=== PATIENT | female | born 1945 | race Caucasian/White ===

== ENCOUNTER → 2016-08-22 | Outpatient (CLI) | payer MEDICARE, OTHER | LOC: RAD 08:54 | PROVIDERS: ATTEND Internal Medicine Cardiovascular Disease | DX: I10 Essential (primary) hypertension (principal) | CPT/HCPCS: 93975 ==

== ENCOUNTER → 2016-09-07 | Outpatient (CLI) | payer MEDICARE, OTHER ==
[2016-09-07 10:21] LABS: ANION GAP 13 (5-19); BLOOD UREA NITROGEN 21 mg/dL (7-20); CALCIUM 10.1 mg/dL (8.4-10.2); CARBON DIOXIDE 27 mmol/L (22-30); CHLORIDE 103 mmol/L (98-107); CREATININE RESULT 0.84 mg/dL (0.52-1.25); GLUCOSE 141 mg/dL (75-110); POTASSIUM 4.7 mmol/L (3.6-5.0); SODIUM 142.6 mmol/L (137-145)
== END ==
LOC: OD 08:58
PROVIDERS: ATTEND Internal Medicine Cardiovascular Disease
DX: Z79.899 Other long term (current) drug therapy (principal)
CPT/HCPCS: 36415; 80048; 83735

== ENCOUNTER 2016-11-30 10:57 | Emergency (ER) | payer MEDICARE, OTHER ==
--- NOTE | 2016-11-30 11:50 | ER Document Report ---
ED Medical Screen (RME) - General Chief Complaint: Fall Injury Stated Complaint: FALL LEGPAIN Mode of Arrival: Ambulatory Information source: Patient, Relative, [facility] Records Notes: This 71-year-old female patient comes in with extreme complaining of right hip pain. This is been going on for several months. This morning she had severe sharp pain in the leg gave out causing her to fall. She is complaining of pain to the hip. She is able walk on it but it is painful. TRAVEL OUTSIDE OF THE [place] IN LAST 30 DAYS: No - Related Data Allergies/Adverse Reactions: acetaminophen [From Percocet] Allergy (Verified 11/30/16 11:00) bacitracin [From Neosporin ([id number])] Allergy (Verified 11/30/16 11:00) demeclocycline [From Declomycin] Allergy (Verified 11/30/16 11:00) latex Allergy (Verified 11/30/16 11:00) metronidazole [From Flagyl] Allergy (Verified 11/30/16 11:00) neomycin [From Neosporin (uzx-pmf-leqgm)] Allergy (Verified 11/30/16 11:00) nizatidine [From Axid] Allergy (Verified 11/30/16 11:00) oxycodone [From Percocet] Allergy (Verified 11/30/16 11:00) polymyxin B [From Neosporin (pas-elp-dymip)] Allergy (Verified 11/30/16 11:00) prednisone Allergy (Verified 11/30/16 11:00) sulfamethoxazole [From Septra] Allergy (Verified 11/30/16 11:00) trimethoprim [From Septra] Allergy (Verified 11/30/16 11:00) Past Medical History - General Information source: Patient, Relative, [facility] Records - Social History Cigarette use (# per day): No - former smoker Chew tobacco use (# tins/day): No Frequency of alcohol use: None Occupation: retired Lives with: Spouse/Significant other - Past Medical History Cardiac Medical History: Reports: Hx Coronary Artery Disease, Hx Hypertension Pulmonary Medical History: Reports: None EENT Medical History: Reports: None Neurological Medical History: Reports: Other - Diabetic peripheral neuropathy Endocrine Medical History: Reports: Hx Diabetes Mellitus Type 2 - On insulin Renal/ Medical History: Reports: None GI Medical History: Reports: Hx Gastroesophageal Reflux Disease Musculoskeltal Medical History: Reports Hx Arthritis, Reports Hx Restless Leg Syndrome Psychiatric Medical History: Reports: Hx Depression Past Surgical History: Reports: Hx Cholecystectomy, Hx Nose Surgery, Hx Orthopedic Surgery - Carpal tunnel, left shoulder, both feet, right hand exploration, Other - Bilateral eye surgery, right ear surgery Review of Systems - Review of Systems Constitutional: No symptoms reported EENT: No symptoms reported Cardiovascular: No symptoms reported Respiratory: No symptoms reported Gastrointestinal: No symptoms reported Genitourinary: No symptoms reported Female Genitourinary: Post menopausal Musculoskeletal: See HPI, Joint pain - Right hip pain Skin: No symptoms reported Hematologic/Lymphatic: No symptoms reported Neurological/Psychological: No symptoms reported Physical Exam - Vital signs Vitals: Temp Pulse Resp BP Pulse Ox 98.4 F 65 18 134/67 H 98 11/30/16 11:00 11/30/16 11:00 11/30/16 11:00 11/30/16 11:00 11/30/16 11:00 Interpretation: Normal - General General appearance: Appears well, Alert In distress: None - HEENT Head: Normocephalic, Atraumatic Eyes: Normal Pupils: PERRL - Respiratory Respiratory status: No respiratory distress - Cardiovascular Rhythm: Regular - Abdominal Inspection: Obese Tenderness: Nontender - Back Back: Normal - Extremities General upper extremity: Other - 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 Doctor's Discharge - Discharge Clinical Impression: Trochanteric bursitis, right hip Condition: Stable Disposition: HOME, SELF-CARE Additional Instructions: Bursitis: You have been diagnosed as having bursitis. Bursitis is an inflammation of a fluid pouch (bursa) found near joints. This is usually due to repeated minor irritation, or pressure directly on the bursa. On occasion, the bursitis can be due to infection (your doctor has checked for this). Sometimes the doctor decides to remove the fluid from the bursa with a needle. This may be to examine the fluid for infection or to ease the pressure caused by the fluid. The usual treatment is rest, local warmth, (or cold if the bursitis is caused by an acute injury), and antiinflammatory medication. Occasionally, an injection of cortisone is necessary. You should call the doctor for re-examination if the pain increases significantly, or if the area becomes severely swollen and red, or fever develops. TAKE 2 ALEVE EVERY 12 HOURS. USE MOIST HEAT TO THE PAINFUL HIP CHRISTINE. LIMIT WALKING FOR SEVERAL DAYS. AVOID CLIMBING STAIRS. FOLLOW UP WITH YOUR DOCTOR IF NOT IMPROVING. Prescriptions: Hydrocodone/Acetaminophen [Hydrocodon-Acetaminophen 5-325] 1 each PO Q4 PRN #15 tablet PRN Reason: For Pain
[2016-11-30] MEDS ORDERED: NAPROXEN 250 MG TABLET PO ONE (12:06)
[2016-11-30] MEDS ORDERED: HYDROCODONE/ACETAMINOPHEN 5-325 MG TABLET PO ONE (12:06)
[2016-11-30 12:14] VITALS: BP 147/60
== END 2016-11-30 12:09 | disposition home or self-care (01) ==
LOC: ER 10:57
DX: M70.61 Trochanteric bursitis, right hip (principal); W19.XXXA Unspecified fall, initial encounter; I25.10 Atherosclerotic heart disease of native coronary artery without angina pectoris; I10 Essential (primary) hypertension; K21.9 Gastro-esophageal reflux disease without esophagitis; E11.9 Type 2 diabetes mellitus without complications; Z79.4 Long term (current) use of insulin; Z88.6 Allergy status to analgesic agent; Z88.3 Allergy status to other anti-infective agents; Z91.040 Latex allergy status; Z87.891 Personal history of nicotine dependence; Z90.49 Acquired absence of other specified parts of digestive tract
CPT/HCPCS: 99283; 73502; A9270 ×2

== ENCOUNTER → 2017-01-02 | Outpatient (CLI) | payer MEDICARE, OTHER ==
[2017-01-02 09:54] LABS: ANION GAP 12 (5-19); BLOOD UREA NITROGEN 23 mg/dL (7-20); CALCIUM 9.8 mg/dL (8.4-10.2); CARBON DIOXIDE 27 mmol/L (22-30); CHLORIDE 104 mmol/L (98-107); CHOLESTEROL 146.88 mg/dL (0-200); CREATININE RESULT 1.07 mg/dL (0.52-1.25); Direct HDL 39 mg/dL (>40); GLUCOSE 149 mg/dL (75-110); POTASSIUM 4.6 mmol/L (3.6-5.0); SODIUM 143.4 mmol/L (137-145); TRIGLYCERIDES 131 mg/dL (<150)
[2017-01-02 10:05] LABS: DIRECT LDL 77 mg/dL (<100)
== END ==
LOC: OD 08:27
PROVIDERS: ATTEND Internal Medicine Cardiovascular Disease
DX: E78.2 Mixed hyperlipidemia (principal); Z79.899 Other long term (current) drug therapy
CPT/HCPCS: 36415; 80048; 80061

== ENCOUNTER → 2017-01-25 | Outpatient (CLI) | payer MEDICARE, OTHER ==
--- NOTE | 2017-01-25 13:11 | RADIOLOGY REPORT (SQ) ---
EXAM DESCRIPTION: CT BONE LENGTH COMPLETED DATE/TIME: 01/25/2017 11:11 am REASON FOR STUDY: CONGENITAL SHORTENING OF UNSPECIFIED LOWER LIMB Q72.819 CONGENITAL SHORTENING OF UNSPECIFIED LOWER LIMB COMPARISON: None. TECHNIQUE: CT scanogram of the bilateral lower extremities is performed including pelvis to ankles. Measurements of femur, tibia, and entire lower extremities performed by the radiologist and saved to PACS. All CT scanners at this facility use dose modulation, iterative reconstruction, and/or weight based d osing when appropriate to reduce radiation dose to as low as reasonably achievable (ALARA). [facility]: Dose Right [facility]: CareDose [facility]: Dose Right [facility]: Teradose 4D [facility]: Basic-Fit RADIATION DOSE: mGy. LIMITATIONS: None. FINDINGS: RIGHT: FEMUR: 40 cm. TIBIA: 33 cm. TOTAL RIGHT LOWER EXTREMITY LENGTH: 73 cm. LEFT: FEMUR: 39.6 cm. TIBIA: 33 cm. TOTAL LEFT LOWER EXTREMITY LENGTH: 72.6 cm. IMPRESSION: LEG LENGTH MEASUREMENTS DETAILED ABOVE. TECHNICAL DOCUMENTATION: JOB ID: [id number] Quality ID # [id number]: Final reports with documentation of one or more dose reduction techniques (e.g., Au tomated exposure control, adjustment of the mA and/or kV according to patient size, use of iterative reconstruction technique) 2010 [employer]- All Rights Reserved
== END ==
LOC: RAD 10:49
PROVIDERS: ATTEND Podiatrist Foot & Ankle Surgery
DX: Q72.819 Congenital shortening of unspecified lower limb (principal)
CPT/HCPCS: 77073

== ENCOUNTER → 2017-02-21 | Outpatient (CLI) | payer MEDICARE, OTHER ==
--- NOTE | 2017-02-22 17:05 | WOMENS IMAGING REPORT ---
EXAM DESCRIPTION: 3D SCREENING MAMMO BILAT COMPLETED DATE/TIME: 02/21/2017 4:19 pm REASON FOR STUDY: ROUTINE SCREENING; Z12.31 Z12.31 ENCNTR SCREEN MAMMOGRAM FOR MALIGNANT NEOPLASM O F KYLE COMPARISON: 2015 TECHNIQUE: Standard craniocaudal and mediolateral oblique views of each breast recorded using digita l acquisition and breast tomosynthesis. LIMITATIONS: None. FINDINGS: No masses, calcifications or architectural distortion. No areas of suspicion. Read with the assistance of CAD. .[facility] - R2 Cenova Version 1.3 .[facility] - R2 Cenova Version 1.3 .[facility] - R2 Cenova Version 2.4 .[facility] [place] - R2 Cenova Version 2.4 .[facility] - R2 Coding Clerk Version 9.2 IMPRESSION: NORMAL MAMMOGRAM. BIRADS 1. BREAST DENSITY: a. The breasts are almost entirely fatty. BIRAD: 1 NEGATIVE RECOMMENDATION: ROUTINE SCREENING Please continue bilateral screening tomosynthesis in February 2018 COMMENT: The patient has been notified of the results by letter per MQSA requirements. Additional no tification policies are in place for contacting patient with suspicious or incomplete findings. Quality ID #[id number]: The [employer] recommends an annual screening mammogram for women aged 40 years or over. This facility utilizes a reminder system to ensure that all patients receive reminder letters, and/or direct phone calls for appointments. This includes reminders for routine scr eening mammograms, diagnostic mammograms, or other Breast Imaging Interventions when appropriate. Th is patient will be placed in the appropriate reminder system. The [employer] (ACR) has developed recommendations for screening MRI of the breast s in certain patient populations, to be used in conjunction with mammography. Breast MRI surveillanc e may be appropriate for women with more than 20% lifetime risk of developing breast cancer as deter mined by genetic testing, significant family history of the disease, or history of mantle radiation f or Hodgkins Disease. ACR Practice Guidelines 2008. DBT Technology DBT is a type of tomographic mammography. With conventional mammography, overlapping breast tissue ma y make lesions difficult to detect, even with good compression. DBT uses an x-ray tube that rotates a round the breast, taking images at different angles. These images are then combined to create thin sl ices of the breast that the radiologist can view as a 3D reconstruction. The [employer] unit can perform full-field digital mammograms (2D imaging); or DBT (3D imaging); or both, in a combination mode that quickly performs both the mammogram and the tomosynthesis scan while the breast is still compressed. PQRS 6045F: Fluoroscopic imaging is not utilized for breast tomosynthesis. TECHNICAL DOCUMENTATION: FINDING NUMBER: (1) ASSESSMENT: (1) JOB ID: [id number] [employer]- All Rights Reserved
== END ==
LOC: WI 13:48
PROVIDERS: ATTEND Physician Assistant
DX: Z12.31 Encounter for screening mammogram for malignant neoplasm of breast (principal)
CPT/HCPCS: 77063; G0202; 77067

== ENCOUNTER → 2017-02-27 | Outpatient (CLI) | payer MEDICARE, OTHER | LOC: OD 10:59 | PROVIDERS: ATTEND Internal Medicine Cardiovascular Disease | DX: E55.9 Vitamin D deficiency, unspecified (principal) | CPT/HCPCS: 36415; 82306 ==

== ENCOUNTER → 2017-03-18 | Outpatient (CLI) | payer MEDICARE, OTHER ==
--- NOTE | 2017-03-18 13:11 | RADIOLOGY REPORT (SQ) ---
EXAM DESCRIPTION: NM GASTRIC EMPTYING STUDY COMPLETED DATE/TIME: 03/18/2017 12:38 pm REASON FOR STUDY: N/V (R11.2), BLOATING (R14.0) R11.2 NAUSEA WITH VOMITING, UNSPECIFIED R14.0 ABDO PAOLA DISTENSION (GASEOUS) COMPARISON: None. RADIONUCLIDE AND DOSE: 2 millicuries Tc-99m Sulfur Colloid. The route of agent administration: Oral. TECHNIQUE: Serial images acquired to 240 minutes. Image intensity values plotted with respect to mo e with linear regression algorithm. LIMITATIONS: None. FINDINGS: CALCULATED VALUE: 70 %. NORMAL VALUE: Greater than 90 % emptying at 240 minutes. OTHER: No other significant finding. IMPRESSION: Delayed gastric emptying as described. TECHNICAL DOCUMENTATION: JOB ID: [id number] [employer]- All Rights Reserved
== END ==
LOC: RAD 07:14
PROVIDERS: ATTEND Internal Medicine Gastroenterology
DX: R11.2 Nausea with vomiting, unspecified (principal); R14.0 Abdominal distension (gaseous)
CPT/HCPCS: 78264; A9541

== ENCOUNTER → 2017-05-02 | Outpatient (CLI) | payer MEDICARE, OTHER ==
[2017-05-02 12:26] LABS: HEMATOCRIT 39.5 % (36.0-47.0); HEMOGLOBIN 13.4 g/dL (12.0-15.5); HGB HCT DIFFERENCE 0.7; MEAN CORPUSCULAR HEMOGLOBIN 30.2 pg (27.0-33.4); MEAN CORPUSCULAR HGB CONC 33.9 g/dL (32.0-36.0); MEAN CORPUSCULAR VOLUME 89 fl (80-97); RED BLOOD COUNT 4.45 10^6/uL (3.72-5.28); RED CELL DISTRIBUTION WIDTH 14.1 % (11.5-14.0)
[2017-05-02 12:40] LABS: ANION GAP 13 (5-19); BLOOD UREA NITROGEN 15 mg/dL (7-20); CALCIUM 10.2 mg/dL (8.4-10.2); CARBON DIOXIDE 25 mmol/L (22-30); CHLORIDE 100 mmol/L (98-107); CREATININE RESULT 0.83 mg/dL (0.52-1.25); GLUCOSE 346 mg/dL (75-110); POTASSIUM 4.7 mmol/L (3.6-5.0); SODIUM 138.1 mmol/L (137-145)
[2017-05-02 13:51] LABS: APPEARANCE,URINE CLEAR; BILIRUBIN,URINE NEGATIVE (NEGATIVE); GLUCOSE, URINE >=500 mg/dL (NEGATIVE); KETONES,URINE NEGATIVE (NEGATIVE); LEUKOCYTE ESTERASE,URINE NEGATIVE (NEGATIVE); NITRITE,URINE NEGATIVE (NEGATIVE); PROTEIN,URINE NEGATIVE (NEGATIVE)
[2017-05-03 11:39] LABS: CREATININE URINE 78.3 mg/dL (Not Estab.); MICROALBUMIN URINE <3.0 ug/mL (Not Estab.)
== END ==
LOC: OD 10:46
PROVIDERS: ATTEND Physician Assistant Medical
DX: I12.9 Hypertensive chronic kidney disease with stage 1 through stage 4 chronic kidney disease, or unspecified chronic kidney disease (principal); N18.3 Chronic kidney disease, stage 3 (moderate); E11.9 Type 2 diabetes mellitus without complications
CPT/HCPCS: 36415; 80048; 81001; 82043; 82570; 85027

== ENCOUNTER → 2017-07-03 | Outpatient (CLI) | payer MEDICARE, OTHER | LOC: OD 10:11 | PROVIDERS: ATTEND Internal Medicine Cardiovascular Disease | DX: E55.9 Vitamin D deficiency, unspecified (principal) | CPT/HCPCS: 36415; 82306 ==

== ENCOUNTER → 2017-07-15 | Outpatient (CLI) | payer MEDICARE, OTHER ==
--- NOTE | 2017-07-16 16:04 | XCELERA REPORT ---
[address] [address] Lower Extremity Arterial Evaluation Name: ALLYSON ALVAREZ Age: 72 yrs Gender: Female : 1945 Patient Status: Outpatient Patient Location: Study Date: 07/15/2017 02:07 PM Procedure: A color flow and duplex scan of the lower extremity arteries was performed bilaterally with velocity and waveform anaylsis. Ankle brachial indicies performed. PPG's performed. Reason For Study: PVD Ordering Physician: JOEY GAONA Performed By: Inna Dash Measurements and Calculations Right Left COMMERCIAL ESTIMATOR PSV 136.2 156.3 cm/sec Prox PFA PSV -78.1 -137.0 cm/sec Prox SFA PSV 110.3 112.9 cm/sec Mid SFA PSV -107.5 -179.0 cm/sec Dist SFA PSV -125.7 -88.0 cm/sec Prox Pop A PSV 50.8 74.3 cm/sec Dist VIOLA PSV 138.3 35.2 cm/sec Dist VICE PRESIDENT SUPPLY CHAIN PSV 82.4 133.4 cm/sec Zeeshan Pedis PSV 156.4 72.0 cm/sec Right Side Arterial Evaluation Normal velocity and triphasic waveforms noted from the Common Femoral artery to the Posterior Tibial artery . Biphasic in the Anterior Tibial artery. 0-19% stenosis at the Anterior Tibial artery. Ankle Brachial index is 1.03. PPG's are normal. Left Side Arterial Evaluation Normal velocity and triphasic waveforms noted from the Common Femoral artery to the Infrageniculate vessels 0 % stenosis . Ankle Brachial index is 1.00. PPG's are normal. Interpretation Summary Mild hemodynamically significant lesions in the right lower extremity only, on duplex imaging, at rest. No hemodynamically significant lesions in the left lower extremity only, on duplex imaging, at rest. : JOEY GAONA > Pasquale García
== END ==
LOC: SP 13:55
PROVIDERS: ATTEND Podiatrist Foot Surgery
DX: I73.9 Peripheral vascular disease, unspecified (principal)
CPT/HCPCS: 93925

== ENCOUNTER 2017-08-21 16:19 | Emergency (ER) | payer MEDICARE, OTHER ==
--- NOTE | 2017-08-21 17:08 | ER Document Report ---
ED Syncope and Near Syncope - General Chief Complaint: Syncope Stated Complaint: WEAKNESS Time Seen by Provider: 08/21/17 16:59 Notes: 72-year-old female had syncopal episode today. Does not really remember what happened. Has a history of diabetes, hypertension, stroke, heart attack. Denies any chest pain at this time. Feels dizzy. Moving her head does not make it worse. TRAVEL OUTSIDE OF THE [place] IN LAST 30 DAYS: No - Related Data Allergies/Adverse Reactions: acetaminophen [From Percocet] Allergy (Verified 11/30/16 11:00) bacitracin [From Neosporin ([id number]-zyn-xajii)] Allergy (Verified 11/30/16 11:00) demeclocycline [From Declomycin] Allergy (Verified 11/30/16 11:00) latex Allergy (Verified 11/30/16 11:00) metronidazole [From Flagyl] Allergy (Verified 11/30/16 11:00) neomycin [From Neosporin (kbv-lmq-kzrka)] Allergy (Verified 11/30/16 11:00) nizatidine [From Axid] Allergy (Verified 11/30/16 11:00) oxycodone [From Percocet] Allergy (Verified 11/30/16 11:00) polymyxin B [From Neosporin (mbr-njw-cxwsz)] Allergy (Verified 11/30/16 11:00) prednisone Allergy (Verified 11/30/16 11:00) sulfamethoxazole [From Septra] Allergy (Verified 11/30/16 11:00) trimethoprim [From Septra] Allergy (Verified 11/30/16 11:00) Past Medical History - Social History Smoking Status: Current Every Day Smoker Cigarette use (# per day): Yes Frequency of alcohol use: Occasional Drug Abuse: None Lives with: Spouse/Significant other Family History: Reviewed & Not Pertinent - Past Medical History Cardiac Medical History: Reports: Hx Coronary Artery Disease, Hx Hypertension Endocrine Medical History: Reports: Hx Diabetes Mellitus Type 2 - On insulin Renal/ Medical History: Denies: Hx Peritoneal Dialysis GI Medical History: Reports: Hx Gastroesophageal Reflux Disease Musculoskeltal Medical History: Reports Hx Arthritis Psychiatric Medical History: Reports: Hx Depression Past Surgical History: Reports: Hx Cholecystectomy, Hx Nose Surgery, Hx Orthopedic Surgery - Carpal tunnel, left shoulder, both feet, right hand exploration, Other - Bilateral eye surgery, right ear surgery - Immunizations Hx Diphtheria, Pertussis, Tetanus Vaccination: No Course - Re-evaluation Re-evalutation: 08/21/17 19:28 Patient with no significant findings. head CT, labs unremarkable. Will place an object this time. Consulted hospitalist who agrees with plan - Laboratory Result Diagrams: 08/21/17 16:30 08/21/17 16:30 Laboratory results interpreted by me: 08/21/17 08/21/17 08/21/17 16:30 16:30 17:30 WBC 11.2 H Sodium 136.8 L Chloride 95 L Glucose 289 H Calcium 10.3 H AST 61 H ALT 71 H Urine Glucose (UA) >=500 H - EKG Interpretation by Me EKG shows normal: Sinus rhythm, [place], Intervals, QRS Complexes, ST-T Waves Discharge - Discharge Clinical Impression: Syncope and collapse Condition: Good Disposition: ADMITTED OBSERVATION Admitting Provider: Hospitalist - Dr. Esteves Referrals: LORI MANDEL PA [Primary Care Provider] - Follow up as needed
[2017-08-21 17:18] LABS: ABSOLUTE BASOPHILS # (AUTO) 0.1 10^3/uL (0.0-0.2); ABSOLUTE EOSINOPHILS # (AUTO) 0.3 10^3/uL (0.0-0.6); ABSOLUTE LYMPHOCYTES (AUTO) 3.4 10^3/uL (0.5-4.7); ABSOLUTE MONOCYTES (AUTO) 0.7 10^3/uL (0.1-1.4); ABSOLUTE NEUT (AUTO) 6.7 10^3/uL (1.7-8.2); BASOPHILS % (AUTO) 0.8 % (0-2); EOSINOPHILS % (AUTO) 3.1 % (0-6); HEMATOCRIT 41.1 % (36.0-47.0); HEMOGLOBIN 13.9 g/dL (12.0-15.5); LYMPHOCYTES % (AUTO) 30.2 % (13-45); MEAN CORPUSCULAR HEMOGLOBIN 29.8 pg (27.0-33.4); MEAN CORPUSCULAR HGB CONC 33.9 g/dL (32.0-36.0); MEAN CORPUSCULAR VOLUME 88 fl (80-97); MONOCYTES % (AUTO) 5.8 % (3-13); PLATELET COUNT 328 10^3/uL (150-450); RED BLOOD COUNT 4.68 10^6/uL (3.72-5.28); RED CELL DISTRIBUTION WIDTH 13.3 % (11.5-14.0); SEGMENTED NEUTROPHILS % (AUTO) 60.1 % (42-78); TOTAL CELLS COUNTED % (AUTO) 100 %; WHITE BLOOD COUNT 11.2 10^3/uL (4.0-10.5)
[2017-08-21 17:24] LABS: ALANINE AMINOTRANSFERASE 71 U/L (9-52); ALBUMIN 4.2 g/dL (3.5-5.0); ALKALINE PHOSPHATASE 82 U/L (38-126); ANION GAP 14 (5-19); ASPARTATE AMINO TRANSFERASE 61 U/L (14-36); BILIRUBIN,DIRECT 0.3 mg/dL (0.0-0.4); BILIRUBIN,TOTAL 0.4 mg/dL (0.2-1.3); BLOOD UREA NITROGEN 20 mg/dL (7-20); CALCIUM 10.3 mg/dL (8.4-10.2); CARBON DIOXIDE 28 mmol/L (22-30); CHLORIDE 95 mmol/L (98-107); CREATINE KINASE 56 U/L (30-135); GLUCOSE 289 mg/dL (75-110); SODIUM 136.8 mmol/L (137-145); TOTAL PROTEIN 6.4 g/dL (6.3-8.2)
--- NOTE | 2017-08-21 17:31 | RADIOLOGY REPORT (SQ) ---
EXAM DESCRIPTION: CT HEAD WITHOUT COMPLETED DATE/TIME: 08/21/2017 5:23 pm REASON FOR STUDY: syncope COMPARISON: None. TECHNIQUE: Axial images acquired through the brain without intravenous contrast. Images reviewed wi th bone, brain and subdural windows. Images stored on PACS. All CT scanners at this facility use dose modulation, iterative reconstruction, and/or weight based d osing when appropriate to reduce radiation dose to as low as reasonably achievable (ALARA). [facility]: Dose Right [facility]: CareDose [facility]: Dose Right [facility]: Teradose 4D [facility]: Room 21 Media RADIATION DOSE: CT Rad equipment meets quality standard of care and radiation dose reduction techniq ues were employed. CTDIvol: 64.6 mGy. DLP: 1163 mGy-cm. mGy. LIMITATIONS: None. FINDINGS: VENTRICLES: Normal size and contour. CEREBRUM: No masses. No hemorrhage. No midline shift. No evidence for acute infarction. Normal gra y/white matter differentiation. No areas of low density in the white matter. CEREBELLUM: No masses. No hemorrhage. No alteration of density. No evidence for acute infarction. EXTRAAXIAL SPACES: No fluid collections. No masses. ORBITS AND GLOBE: No intra- or extraconal masses. Normal contour of globe without masses. CALVARIUM: No fracture. PARANASAL SINUSES: No fluid or mucosal thickening. SOFT TISSUES: No mass or hematoma. OTHER: No other significant finding. IMPRESSION: NORMAL BRAIN CT WITHOUT CONTRAST. EVIDENCE OF ACUTE STROKE: NO. COMMENT: Quality ID # [id number]: Final reports with documentation of one or more dose reduction techniques (e.g., Automated exposure control, adjustment of the mA and/or kV according to patient size, use of iterative reconstruction technique) TECHNICAL DOCUMENTATION: JOB ID: [id number] [employer]- All Rights Reserved
--- NOTE | 2017-08-21 17:32 | RADIOLOGY REPORT (SQ) ---
EXAM DESCRIPTION: CHEST SINGLE VIEW COMPLETED DATE/TIME: 08/21/2017 5:24 pm REASON FOR STUDY: syncope COMPARISON: None. EXAM PARAMETERS: NUMBER OF VIEWS: One view. TECHNIQUE: Single frontal radiographic view of the chest acquired. RADIATION DOSE: NA LIMITATIONS: None. FINDINGS: LUNGS AND PLEURA: No opacities, masses or pneumothorax. No pleural effusion. MEDIASTINUM AND HILAR STRUCTURES: No masses. Contour normal. HEART AND VASCULAR STRUCTURES: Heart normal in size. Normal vasculature. BONES: No acute findings. HARDWARE: None in the chest. OTHER: No other significant finding. IMPRESSION: NO ACUTE RADIOGRAPHIC FINDING IN THE CHEST. TECHNICAL DOCUMENTATION: JOB ID: [id number] [employer]- All Rights Reserved
[2017-08-21 17:36] LABS: CREATINE KINASE MB 0.36 ng/mL (<4.55)
[2017-08-21 17:38] LABS: TROPONIN I < 0.012 ng/mL
--- NOTE | 2017-08-21 18:35 | EKG REPORT ---
SEVERITY:- NORMAL ECG - SINUS RHYTHM : Confirmed by: James Cabrales MD 21-Aug-2017 18:35:01
[2017-08-21 18:47] LABS: APPEARANCE,URINE CLEAR; BILIRUBIN,URINE NEGATIVE (NEGATIVE); COLOR,URINE YELLOW; GLUCOSE, URINE >=500 mg/dL (NEGATIVE); KETONES,URINE NEGATIVE (NEGATIVE); LEUKOCYTE ESTERASE,URINE NEGATIVE (NEGATIVE); NITRITE,URINE NEGATIVE (NEGATIVE); PROTEIN,URINE NEGATIVE (NEGATIVE); URINE SPECIFIC GRAVITY 1.009; UROBILINOGEN,URINE NEGATIVE mg/dL (<2.0)
[2017-08-21] MEDS ORDERED: NORMAL SALINE 1000 ML 1,000 ML IV PRN (21:34)
[2017-08-21] MEDS ORDERED: ALPRAZOLAM 0.5 MG TABLET PO PRN (21:38)
[2017-08-21] MEDS ORDERED: DEXTROSE 40% GEL 15 GM TUBE PO PRN ×2 (21:39)
[2017-08-21] MEDS ORDERED: DEXTROSE 50%-WATER 25 GM/50 ML DISP.SYRIN IV PRN ×2 (21:39)
[2017-08-21] MEDS ORDERED: GLUCAGON,HUMAN RECOMB 1 MG INJ IM PRN (21:39)
[2017-08-21] MEDS ORDERED: NORMAL SALINE 1000 ML 1,000 ML IV ONE (21:53)
[2017-08-21] MEDS ORDERED: ACETAMINOPHEN 325 MG TABLET PO PRN (21:54)
[2017-08-21] MEDS ORDERED: INSULIN GLARGINE,HUM.REC.ANLOG 1,000 UNIT/10 ML UNIT SUBCUT SCH (22:00)
[2017-08-21] MEDS ORDERED: NICOTINE 14 MG/24 HR PATCH.TD24 TD ONE (22:15)
[2017-08-21 23:22] LABS: CREATINE KINASE MB 0.38 ng/mL (<4.55)
[2017-08-21 23:27] LABS: TROPONIN I < 0.012 ng/mL
[2017-08-22] MEDS: HEPARIN SOD (PORCINE) 5,000 UNIT/ML 1 ML SYRINGE SUBCUT SCH ×4 (01:42→23:21)
[2017-08-22] MEDS: ATORVASTATIN CALCIUM 40 MG TABLET PO SCH ×3 (02:37→23:20)
[2017-08-22] MEDS: GABAPENTIN 300 MG CAPSULE PO SCH ×3 (02:37→23:19)
[2017-08-22] MEDS: METOPROLOL TARTRATE 50 MG TABLET PO SCH ×3 (02:37→23:22)
[2017-08-22] MEDS: LANSOPRAZOLE 15 MG TAB.RAP.DR PO SCH ×3 (02:49→23:19)
[2017-08-22 05:43] LABS: CREATINE KINASE MB 0.49 ng/mL (<4.55)
[2017-08-22 05:51] LABS: TROPONIN I < 0.012 ng/mL
--- NOTE | 2017-08-22 07:56 | PDOC H&P ---
History of Present Illness Admission Date/PCP: 08/21/17 19:43 YESSICA LEW History of Present Illness: ALLYSON ALVAREZ is a 72 year old female with past medical history of hypertension, hyperlipidemia, MO, IDDM, GERD, restless leg, anxiety, depression, and insomnia who presents to the emergency department with complaints of syncope. Patient reports been having dizzy spells for the last several days. She reports that she did not feel very well today and became disoriented and subsequently passed out. She denies any loss of bowel or bladder function, she did not hit her head. Patient reports her blood sugars have been over 300 for the last 3 months. She reports that about 3/2 months ago she stopped taking Victoza. Patient does continue to smoke. She reports the last time she felt this way she had a heart attack. She is referred to hospital service for observation for syncope. Past Medical History Cardiac Medical History: Reports: Coronary Artery Disease, Myocardial Infarction , Hyperlipidema, Hypertension Pulmonary Medical History: Reports: Chronic Obstructive Pulmonary Disease (COPD) EENT Medical History: Reports: Cataracts Endocrine Medical History: Reports: Diabetes Mellitus Type 2 - On insulin, Obesity GI Medical History: Reports: Gastroesophageal Reflux Disease Musculoskeltal Medical History: Reports: Arthritis Psychiatric Medical History: Reports: Depression Past Surgical History Past Surgical History: Reports: Cholecystectomy, Hysterectomy, Orthopedic Surgery - Carpal tunnel, left shoulder, both feet, right hand exploration, Other - Bilateral eye surgery, right ear surgery Social History Lives with: Spouse/Significant other Smoking Status: Current Every Day Smoker Cigarettes Packs Per Day: 0.5 Frequency of Alcohol Use: None Hx Recreational Drug Use: No Hx Prescription Drug Abuse: No - Advance Directive Resuscitation Status: Do Not Resuscitate Surrogate healthcare decision maker:: Ismael Alvarez, Family History Family History: CAD, COPD, Malignancy Parental Family History Reviewed: Yes Children Family History Reviewed: Yes Sibling(s) Family History Reviewed.: Yes Medication/Allergy Home Medications: Alprazolam [Xanax 0.5 mg Tablet] 0.5 mg PO Q8HP PRN 08/21/17 Aspirin [Aspirin EC] 81 mg PO DAILY 08/21/17 Atorvastatin Calcium [Lipitor 40 mg Tablet] 40 mg PO QHS 08/21/17 Clopidogrel Bisulfate [Plavix 75 mg Tablet] 75 mg PO DAILY 08/21/17 Cyanocobalamin (Vitamin B-12) [Vitamin B12] 1,000 mcg PO DAILY 08/21/17 Ergocalciferol (Vitamin D2) [Vitamin D2] 50,000 unit PO Q7D@0800 08/21/17 Ezetimibe [Zetia 10 mg Tablet] 10 mg PO DAILY 08/21/17 Gabapentin 300 mg PO Q12 08/21/17 Hydrochlorothiazide 25 mg PO DAILY 08/21/17 Insulin Aspart [Novolog Insulin 100 Unit/1 ml 10 ml] 12 unit SUBCUT .SLD SCALE 08/21/17 Insulin Glargine,Hum.rec.anlog [Lantus Insulin 100 Unit/1 ml 10 ml] 60 unit SUBCUT QHS 08/21/17 Lisinopril [Prinivil] 20 mg PO DAILY 08/21/17 Metoprolol Tartrate [Lopressor 50 mg Tablet] 50 mg PO Q12 08/21/17 Omeprazole 20 mg PO Q12 08/21/17 Ropinirole HCl [Requip] 1 mg PO DAILY 08/21/17 Venlafaxine HCl [Venlafaxine HCl ER] 75 mg PO DAILY 08/21/17 Zolpidem Tartrate [Ambien] 10 mg PO QHS 08/21/17 Allergies/Adverse Reactions: bacitracin [From Neosporin ([id number]-[id number])] Allergy (Verified 08/21/17 22:35) demeclocycline [From Declomycin] Allergy (Verified 08/21/17 22:35) latex Allergy (Verified 08/21/17 22:35) metronidazole [From Flagyl] Allergy (Verified 08/21/17 22:35) neomycin [From Neosporin (fhy-egk-rzlkh)] Allergy (Verified 08/21/17 22:35) nizatidine [From Axid] Allergy (Verified 08/21/17 22:35) oxycodone [From Percocet] Allergy (Verified 08/21/17 22:35) polymyxin B [From Neosporin ([id number]-rjy-wpbke)] Allergy (Verified 08/21/17 22:35) prednisone Allergy (Verified 08/21/17 22:35) sulfamethoxazole [From Septra] Allergy (Verified 08/21/17 22:35) trimethoprim [From Septra] Allergy (Verified 11/30/16 11:00) Review of Systems Constitutional: ABSENT: chills, fever(s), headache(s), weight gain, weight loss Eyes: ABSENT: visual disturbances Ears: ABSENT: hearing changes Cardiovascular: ABSENT: chest pain, dyspnea on exertion, edema, orthropnea, palpitations Respiratory: ABSENT: cough, hemoptysis Gastrointestinal: ABSENT: abdominal pain, constipation, diarrhea, hematemesis, hematochezia, nausea, vomiting Genitourinary: ABSENT: dysuria, hematuria Musculoskeletal: ABSENT: joint swelling Integumentary: ABSENT: rash, wounds Neurological: PRESENT: dizziness, syncope. ABSENT: abnormal gait, abnormal speech, confusion, focal weakness Psychiatric: ABSENT: anxiety, depression, homidical ideation, suicidal ideation Endocrine: PRESENT: polydipsia, polyuria. ABSENT: cold intolerance, heat intolerance Hematologic/Lymphatic: ABSENT: easy bleeding, easy bruising Physical Exam Vital Signs: Intake & Output 08/21/17 08/22/17 08/23/17 06:59 06:59 06:59 Weight 77.8 kg General appearance: PRESENT: no acute distress, obese, well-developed, well- nourished Head exam: PRESENT: atraumatic, normocephalic Eye exam: PRESENT: conjunctiva pink, EOMI, PERRLA. ABSENT: scleral icterus Ear exam: PRESENT: normal external ear exam Mouth exam: PRESENT: dry mucosa, tongue midline Neck exam: ABSENT: carotid bruit, JVD, lymphadenopathy, thyromegaly, tracheal deviation Respiratory exam: PRESENT: clear to auscultation colt, unlabored. ABSENT: rales , rhonchi, wheezes Cardiovascular exam: PRESENT: RRR, +S1, +S2. ABSENT: diastolic murmur, rubs, systolic murmur Pulses: PRESENT: normal dorsalis pedis pul Vascular exam: PRESENT: normal capillary refill GI/Abdominal exam: PRESENT: normal bowel sounds, soft. ABSENT: distended, guarding, mass, organolmegaly, rebound, tenderness Rectal exam: PRESENT: deferred Extremities exam: PRESENT: full ROM. ABSENT: calf tenderness, clubbing, pedal edema Neurological exam: PRESENT: alert, awake, oriented to person, oriented to place , oriented to time, oriented to situation, CN II-XII grossly intact. ABSENT: motor sensory deficit Psychiatric exam: PRESENT: appropriate affect, normal mood. ABSENT: homicidal ideation, suicidal ideation Skin exam: PRESENT: dry, intact, warm. ABSENT: cyanosis, rash Results Laboratory Results: 08/22/17 05:02 TSH 1.89 08/21/17 08/21/17 08/22/17 22:40 22:40 05:02 Creatine Kinase 62 58 CK-MB (CK-2) 0.38 Troponin I < 0.012 08/22/17 05:02 Creatine Kinase CK-MB (CK-2) 0.49 Troponin I < 0.012 Impressions: Chest X-Ray 08/21/17 17:09 IMPRESSION: NO ACUTE RADIOGRAPHIC FINDING IN THE CHEST. Head CT 08/21/17 17:09 IMPRESSION: NORMAL BRAIN CT WITHOUT CONTRAST. EVIDENCE OF ACUTE STROKE: NO. Assessment & Plan - Diagnosis (1) Syncope and collapse Is this a current diagnosis for this admission?: Yes Plan: Obtain orthostatics On telemetry for arrhythmia Likely secondary to dehydration (2) Dehydration Is this a current diagnosis for this admission?: Yes Plan: Feel the patient's syncope is likely secondary to this however in light of her past history and risk factors will monitor for ACS. Patient is at risk for arrhythmia as well. Obtain orthostatics (3) IDDM (insulin dependent diabetes mellitus) Is this a current diagnosis for this admission?: Yes Plan: Patient reports she has a follow-up appointment with endocrinology. Defer management to them (4) CAD (coronary artery disease) Qualifiers: Coronary Disease-Associated Artery/Lesion type: [place] artery Associated angina: angina presence unspecified Is this a current diagnosis for this admission?: Yes Plan: Continue patient on Plavix, Lopressor, and lisinopril. (5) GERD (gastroesophageal reflux disease) Qualifiers: Esophagitis presence: esophagitis presence not specified Qualified Code(s) : K21.9 - Gastro-esophageal reflux disease without esophagitis Is this a current diagnosis for this admission?: Yes (6) Obesity (BMI 30.0-34.9) Is this a current diagnosis for this admission?: Yes - Time Time Spent: 30 to 50 Minutes Medications reviewed and adjusted accordingly: Yes Anticipated discharge: Home Within: within 24 hours - Inpatient Certification Based on my medical assessment, after consideration of the patient's comorbidities, presenting symptoms, or acuity I expect that the services needed warrant INPATIENT care.: No I certify that my determination is in accordance with my understanding of Medicare's requirements for reasonable and necessary INPATIENT services [42 CFR 412.3e].: No
[2017-08-22] MEDS ORDERED: VENLAFAXINE HCL 75 MG CAP.SR.24H PO SCH ×2 (10:00→22:00)
[2017-08-22] MEDS ORDERED: EZETIMIBE 10 MG TABLET PO SCH ×2 (10:00→22:00)
[2017-08-22] MEDS ORDERED: CYANOCOBALAMIN (VITAMIN B-12) 1,000 MCG TABLET PO SCH ×2 (10:00→22:00)
[2017-08-22] MEDS ORDERED: CLOPIDOGREL BISULFATE 75 MG TABLET PO SCH ×2 (10:00→22:00)
[2017-08-22] MEDS: ASPIRIN 81 MG TABLET, ENT COATED PO SCH (10:21)
[2017-08-22] MEDS: LISINOPRIL 10 MG TABLET PO SCH (10:25)
[2017-08-22] MEDS: ROPINIROLE HCL 1 MG TABLET PO SCH (10:27)
[2017-08-22] MEDS: NICOTINE 14 MG/24 HR PATCH.TD24 TD SCH (10:30)
[2017-08-22] MEDS: DOCUSATE SODIUM 100 MG CAPSULE PO SCH ×2 (10:30→18:33)
[2017-08-22 11:27] LABS: CREATINE KINASE MB 0.69 ng/mL (<4.55)
[2017-08-22 11:36] LABS: TROPONIN I < 0.012 ng/mL
--- NOTE | 2017-08-22 17:48 | PROGRESS NOTE E ---
Progress Note NAME: ALLYSON ALVAREZ : 1945 AGE: 72Y DATE: 08/22/2017 ROOM: 420 SUBJECTIVE: The patient is currently lying in bed. The patient states that she feels much better than when she came in, but she is quite concerned about her blood sugars. The patient states that she feels her blood sugars are high. The patient denies any nausea or vomiting, no diarrhea, no shortness of breath, dizziness or chest pain. The patient describes herself as overall fatigued, and the patient does not voice any other concerns at this time. REVIEW OF SYSTEMS: Rest of review of systems is negative. MEDICATIONS: Medications have been reviewed. OBJECTIVE: GENERAL: The patient is a 72-year-old female who is awake and alert and oriented to person, place, time and situation. She is verbal and conversational and does not appear to be in any acute distress. VITAL SIGNS: Temperature is 97.5, pulse 74, respirations 18, blood pressure 123/101, oxygen saturation is 100% on room air. SKIN: Warm and dry. No rashes, not diaphoretic. HEENT: Pupils are equal, round, reactive to light and accommodation. Conjunctivae pink. There is no evidence of JVP. CVS: Heart is regular. There is no murmur or rub. CHEST: Clear, symmetrical and unlabored. ABDOMEN: Soft, nontender and nondistended. BACK: No CVA tenderness or sacral edema. EXTREMITIES: No clubbing, cyanosis or edema. PSYCHIATRIC: Appropriate affect, pleasant mood. DIAGNOSTIC DATA: Lab values are as follows: Hematology obtained on 08/21/2017: WBC is 11.2, hemoglobin 13.9, hematocrit 41.1, and platelet count is 328,000. IMPRESSION AND PLAN: 1. PERSISTENT HYPERGLYCEMIA DUE TO INSULIN-DEPENDENT DIABETES MELLITUS. The patient stated that her blood sugars have been very difficult to control since stopping Victoza. The patient does have a followup with her world renowned chef and restaurant owner on Saturday. At this time will give the patient sliding scale coverage and increase basal dosing. The patient stated that she is not taking any other agents. 2. DEHYDRATION SECONDARY TO #1. The patient has been gently hydrated. Will repeat chemistry and follow. 3. SYNCOPE SECONDARY TO #1 AND 2. The patient states overall her symptoms have completely resolved. Will have the patient evaluated by physical therapy and follow. 4. CORONARY ARTERY DISEASE. Continue home medications. 5. GASTROESOPHAGEAL REFLUX DISEASE. Will continue PPI therapy. DISPOSITION: The patient is a FULL CODE. Pending the patient's symptomatology and diagnostic findings, will re-evaluate in the a.m. for discharge. TIME SPENT: On this followup including assessment, plan, physical examination, patient education, and review of records is 25 minutes. DICTATING PHYSICIAN: GANGA QUINONES NP [id number] Y#: [id number] ID: [id number] JOB#: [id number] ACCT: [id number] cc: >
[2017-08-22] MEDS: INSULIN LISPRO 100 UNIT/ML 3 ML VIAL SUBCUT PRN ×2 (18:32→23:22)
[2017-08-22] MEDS ORDERED: INSULIN GLARGINE,HUM.REC.ANLOG 1,000 UNIT/10 ML UNIT SUBCUT SCH (22:00)
[2017-08-23] MEDS: HEPARIN SOD (PORCINE) 5,000 UNIT/ML 1 ML SYRINGE SUBCUT SCH (06:03)
[2017-08-23 06:54] LABS: HEMATOCRIT 39.9 % (36.0-47.0); HEMOGLOBIN 13.4 g/dL (12.0-15.5); MEAN CORPUSCULAR HEMOGLOBIN 29.8 pg (27.0-33.4); MEAN CORPUSCULAR HGB CONC 33.5 g/dL (32.0-36.0); MEAN CORPUSCULAR VOLUME 89 fl (80-97); PLATELET COUNT 237 10^3/uL (150-450); RED BLOOD COUNT 4.49 10^6/uL (3.72-5.28); WHITE BLOOD COUNT 7.1 10^3/uL (4.0-10.5)
[2017-08-23 07:13] LABS: ANION GAP 8 (5-19); BLOOD UREA NITROGEN 20 mg/dL (7-20); CALCIUM 9.7 mg/dL (8.4-10.2); CARBON DIOXIDE 26 mmol/L (22-30); CHLORIDE 105 mmol/L (98-107); GLUCOSE 275 mg/dL (75-110); MAGNESIUM 1.6 mg/dL (1.6-2.3); POTASSIUM 4.4 mmol/L (3.6-5.0); SODIUM 139.4 mmol/L (137-145)
[2017-08-23] MEDS: INSULIN LISPRO 100 UNIT/ML 3 ML VIAL SUBCUT PRN (08:27)
[2017-08-23] MEDS: DOCUSATE SODIUM 100 MG CAPSULE PO SCH (08:29)
[2017-08-23] MEDS: NICOTINE 14 MG/24 HR PATCH.TD24 TD SCH (08:29)
[2017-08-23] MEDS: LISINOPRIL 10 MG TABLET PO SCH (09:44)
[2017-08-23] MEDS: ASPIRIN 81 MG TABLET, ENT COATED PO SCH (09:45)
[2017-08-23] MEDS: METOPROLOL TARTRATE 50 MG TABLET PO SCH (09:45)
[2017-08-23] MEDS: GABAPENTIN 300 MG CAPSULE PO SCH (09:45)
[2017-08-23] MEDS: ROPINIROLE HCL 1 MG TABLET PO SCH (09:46)
[2017-08-23] MEDS: LANSOPRAZOLE 15 MG TAB.RAP.DR PO SCH (09:47)
[2017-08-23 11:32] VITALS: BP 128/70
--- NOTE | 2017-08-23 12:19 | DISCHARGE SUMMARY E ---
Discharge Summary NAME: ALLYSON ALVAREZ : 1945 AGE: 72Y ADMITTED: 08/21/2017 DISCHARGED: 08/23/2017 CODE STATUS: FULL CODE. PRIMARY CARE PROVIDER: Ania Amin DISCHARGE DIAGNOSES: 1. Dehydration secondary to persistent hyperglycemia due to insulin dependent diabetes mellitus type 2. 2. Syncope secondary to #1. 3. Coronary artery disease. 4. Gastroesophageal reflux disease. DISCHARGE MEDICATIONS: 1. Xanax 0.5 mg p.o. q.8 hours p.r.n. 2. Aspirin 81 mg p.o. daily. 3. Lipitor 40 mg p.o. at hour of sleep. 4. Plavix 75 mg p.o. daily. 5. Vitamin B12 at 1000 mcg p.o. daily. 6. Vitamin D 50,000 international units p.o. weekly. 7. Zetia 10 mg p.o. daily. 8. Gabapentin 300 mg p.o. q.12 hours. 9. Lisinopril 20 mg p.o. daily. 10. Lopressor 50 mg p.o. q.12 hours. 11. Omeprazole 20 mg p.o. q.12 hours. 12. Requip 1 mg p.o. daily. 13. Zanaflex 75 mg p.o. daily. 14. Ambien 10 mg p.o. at hour of sleep. DIET: Heart, diabetic. ACTIVITY: As tolerated. DIAGNOSTICS: Lab values are as follows: Hematology obtained on 08/21/2017: WBCs are 10.1, hemoglobin 13.4, hematocrit 39.9, and platelet count is 237,000. Chemistry obtained on 08/23/2017: Sodium is 139, potassium 4.4, chloride is 105, carbon dioxide 26, BUN 20, creatinine is 0.83, glucose 275, calcium is 9.7, magnesium is 1.6, CK is 64, CK-MB is 0.69, troponin is 0.012, TSH is 1.89, bilirubin 0.4, AST 61, ALT of 71, alk phos 82. Urinalysis obtained on 08/21/2017: Color yellow, appearance clear, pH 6.0, specific gravity 1.009, protein negative, glucose greater than 500, ketones negative, occult blood negative, nitrate negative, bilirubin negative, urobilinogen negative, leukocyte esterase negative, WBC 0, ascorbic acid is negative. Microbiology: Urine culture obtained on 08/21/2017 is unremarkable. Chest x-ray obtained on 08/21/2017 reveals no acute radiographic finding of the chest. Head CT obtained on 08/21/[address] without contrast. PHYSICAL EXAMINATION: GENERAL: On examination, the patient is a well-developed, well-nourished, 72-year-old female who is awake, alert, and oriented to person, place, time, and situation. She is verbal, conversational, and does not appear to be in any acute distress. VITAL SIGNS: Temperature 97.9, pulse 65, respirations 22, blood pressure 147/63, oxygen saturation is 97% on room air. SKIN: Warm and dry. No rash. She is not diaphoretic. HEENT: Pupils equal, round, reactive to light and accommodation. Conjunctivae are pink. There is no evidence of JVP. CARDIOVASCULAR: Heart is regular. There is no murmur or rub. CHEST: Clear, symmetrical, unlabored. ABDOMEN: Soft, nontender, nondistended. BACK: No CVA tenderness or sacral edema. EXTREMITIES: No clubbing, cyanosis, or edema. PSYCHIATRIC: Appropriate affect. Pleasant mood. HISTORY OF PRESENT ILLNESS: The patient is a 72-year-old female with a past medical history of hypertension, hyperlipidemia, previous myocardial infraction, and insulin dependent diabetes mellitus. The patient presented to the emergency department with a chief complaint of syncope. The patient stated that she had been having dizzy spells for the last several days and was not feeling well until she became disoriented and subsequently passed out. The patient denied any loss of bowel or bladder function. she did not hit her head. The patient reports her blood sugars have been over 300 for the past3 months. The patient reports that 2-3 months ago she stopped taking Victoza as it was causing GI issues. The patient does continue to smoke. The patient reports last time that she had the episode, she felt she may be having a heart attack and therefore she was referred to the hospitalist for observation and management. HOSPITAL COURSE: The patient was observed in continuous telemetry unit. Serial cardiac enzymes were obtained, all of which were found to be non-suggestive. The patient had no evidence on the athletic monitor and no replication of symptoms. The patient was aggressively hydrated and the patient's symptoms improved. The patient's blood glucose did improve with hydration. The patient states that she has an appointment with her bunk assembler on Saturday and does not want to make any changes in her current routine because he may make changes when seen. Feel the patient is safe although she is running high and would ideally like to increase her basal dose of insulin. The patient declines any additional agents such as metformin to help with her glucoses. DISCHARGE PLANNING: The patient is to followup with her bunk assembler on Saturday as scheduled. Time spent on this discharge including assessment, plan, physical examination, patient education, review of records, and family meeting is 25 minutes. DICTATING PHYSICIAN: GANGA QUINONES NP [id number] PHY#: [id number] ID: [id number] JOB#: [id number] ACCT: [id number] cc:LUCERO ROBB M.D., MICHAEL NP >
[2017-08-28] MEDS ORDERED: ERGOCALCIFEROL (VITAMIN D2) 50000 UNIT (1.25 MG) CAPSULE PO SCH (08:00)
== END 2017-08-23 11:30 | disposition home or self-care (01) ==
LOC: ER 16:19 → EH 19:43 → 4W 08-22 12:00
PROVIDERS: ADMIT Family Medicine; ATTEND Family Medicine
DX: E11.65 Type 2 diabetes mellitus with hyperglycemia (principal); E86.0 Dehydration; R55 Syncope and collapse; I25.10 Atherosclerotic heart disease of native coronary artery without angina pectoris; K21.9 Gastro-esophageal reflux disease without esophagitis; I10 Essential (primary) hypertension; E78.5 Hyperlipidemia, unspecified; I25.2 Old myocardial infarction; M19.90 Unspecified osteoarthritis, unspecified site; E66.9 Obesity, unspecified; F17.210 Nicotine dependence, cigarettes, uncomplicated; G47.00 Insomnia, unspecified; G25.81 Restless legs syndrome; F41.9 Anxiety disorder, unspecified; Z90.49 Acquired absence of other specified parts of digestive tract; Z66 Do not resuscitate; Z79.02 Long term (current) use of antithrombotics/antiplatelets; Z79.899 Other long term (current) drug therapy; Z79.4 Long term (current) use of insulin; Z68.31 Body mass index [BMI] 31.0-31.9, adult
CPT/HCPCS: 93005; 99285; 36415 ×3; 87086; 82553 ×2; 82962; 82550 ×2; 83735; 84443; 85025; 85027; 80048; 80053; 81001; 84484 ×2; 71045; 70450; 93010; 97110; 97163; G0378 ×4; A9270 ×19; J1644; J3490; J7030; G8978; G8979; G8980; J1815

== ENCOUNTER → 2017-11-15 | Outpatient (CLI) | payer MEDICARE, OTHER ==
[2017-11-15 11:56] LABS: APPEARANCE,URINE CLOUDY; BILIRUBIN,URINE NEGATIVE (NEGATIVE); COLOR,URINE AMBER; GLUCOSE, URINE NEGATIVE (NEGATIVE); KETONES,URINE NEGATIVE (NEGATIVE); LEUKOCYTE ESTERASE,URINE LARGE (NEGATIVE); NITRITE,URINE NEGATIVE (NEGATIVE); PROTEIN,URINE NEGATIVE (NEGATIVE); URINE SPECIFIC GRAVITY 1.018
[2017-11-15 11:57] LABS: HEMATOCRIT 40.6 % (36.0-47.0); HEMOGLOBIN 13.6 g/dL (12.0-15.5); MEAN CORPUSCULAR HEMOGLOBIN 29.4 pg (27.0-33.4); MEAN CORPUSCULAR HGB CONC 33.5 g/dL (32.0-36.0); MEAN CORPUSCULAR VOLUME 88 fl (80-97); PLATELET COUNT 331 10^3/uL (150-450); RED BLOOD COUNT 4.64 10^6/uL (3.72-5.28); RED CELL DISTRIBUTION WIDTH 14.1 % (11.5-14.0); WHITE BLOOD COUNT 9.6 10^3/uL (4.0-10.5)
[2017-11-15 12:18] LABS: ANION GAP 11 (5-19); BLOOD UREA NITROGEN 12 mg/dL (7-20); CALCIUM 9.8 mg/dL (8.4-10.2); CARBON DIOXIDE 28 mmol/L (22-30); CHLORIDE 103 mmol/L (98-107); GLUCOSE 130 mg/dL (75-110); POTASSIUM 4.8 mmol/L (3.6-5.0); SODIUM 141.7 mmol/L (137-145)
[2017-11-16 12:37] LABS: CREATININE URINE 140.9 mg/dL (Not Estab.); MICROALBUMIN URINE 25.1 ug/mL (Not Estab.)
== END ==
LOC: OD 10:48
PROVIDERS: ATTEND Physician Assistant Medical
DX: I12.9 Hypertensive chronic kidney disease with stage 1 through stage 4 chronic kidney disease, or unspecified chronic kidney disease (principal); N18.2 Chronic kidney disease, stage 2 (mild); E11.9 Type 2 diabetes mellitus without complications
CPT/HCPCS: 36415; 80048; 81001; 82043; 82570; 85027

== ENCOUNTER → 2017-12-24 | Outpatient (CLI) | payer MEDICARE, OTHER ==
[2017-12-24 11:14] LABS: ANION GAP 15 (5-19); BLOOD UREA NITROGEN 20 mg/dL (7-20); CALCIUM 9.9 mg/dL (8.4-10.2); CARBON DIOXIDE 28 mmol/L (22-30); CHLORIDE 101 mmol/L (98-107); CHOLESTEROL 137.49 mg/dL (0-200); GLUCOSE 125 mg/dL (75-110); POTASSIUM 4.3 mmol/L (3.6-5.0); SODIUM 144.2 mmol/L (137-145); TRIGLYCERIDES 169 mg/dL (<150)
[2017-12-24 11:25] LABS: DIRECT LDL 73 mg/dL (<100)
[2017-12-24 11:26] LABS: VLDL CHOLESTEROL 33.8 mg/dL (10-31)
== END ==
LOC: OD 09:42
PROVIDERS: ATTEND Internal Medicine Cardiovascular Disease
DX: I10 Essential (primary) hypertension (principal); E11.9 Type 2 diabetes mellitus without complications; R55 Syncope and collapse; E78.2 Mixed hyperlipidemia; R07.9 Chest pain, unspecified
CPT/HCPCS: 36415; 80048; 80061

== ENCOUNTER → 2018-10-06 | Outpatient (CLI) | payer OTHER, MEDICARE ==
[2018-10-06 13:22] LABS: ALANINE AMINOTRANSFERASE 35 U/L (9-52); ALBUMIN 4.5 g/dL (3.5-5.0); ALKALINE PHOSPHATASE 76 U/L (38-126); ANION GAP 13 (5-19); ASPARTATE AMINO TRANSFERASE 32 U/L (14-36); BILIRUBIN,DIRECT 0.3 mg/dL (0.0-0.4); BILIRUBIN,TOTAL 0.3 mg/dL (0.2-1.3); BLOOD UREA NITROGEN 20 mg/dL (7-20); CALCIUM 10.3 mg/dL (8.4-10.2); CARBON DIOXIDE 25 mmol/L (22-30); CHLORIDE 108 mmol/L (98-107); CHOLESTEROL 163.46 mg/dL (0-200); GLUCOSE 106 mg/dL (75-110); POTASSIUM 5.1 mmol/L (3.6-5.0); SODIUM 145.6 mmol/L (137-145); TOTAL PROTEIN 6.7 g/dL (6.3-8.2); TRIGLYCERIDES 177 mg/dL (<150)
[2018-10-06 13:33] LABS: DIRECT LDL 93 mg/dL (<100)
[2018-10-06 13:35] LABS: VLDL CHOLESTEROL 35.4 mg/dL (10-31)
== END ==
LOC: OD 11:37
PROVIDERS: ATTEND Internal Medicine Cardiovascular Disease
DX: I10 Essential (primary) hypertension (principal); E78.2 Mixed hyperlipidemia; Z79.899 Other long term (current) drug therapy
CPT/HCPCS: 36415; 80048; 80061; 80076

== ENCOUNTER → 2019-01-13 | Outpatient (CLI) | payer MEDICARE, OTHER ==
[2019-01-13 13:17] LABS: HEMOGLOBIN 12.8 g/dL (12.0-15.5); MEAN CORPUSCULAR HEMOGLOBIN 29.6 pg (27.0-33.4); MEAN CORPUSCULAR HGB CONC 33.7 g/dL (32.0-36.0); MEAN CORPUSCULAR VOLUME 88 fl (80-97); PLATELET COUNT 346 10^3/uL (150-450); RED BLOOD COUNT 4.34 10^6/uL (3.72-5.28); RED CELL DISTRIBUTION WIDTH 15.6 % (11.5-14.0); WHITE BLOOD COUNT 8.2 10^3/uL (4.0-10.5)
[2019-01-13 13:42] LABS: ALANINE AMINOTRANSFERASE 37 U/L (9-52); ALBUMIN 4.2 g/dL (3.5-5.0); ALKALINE PHOSPHATASE 75 U/L (38-126); ANION GAP 13 (5-19); ASPARTATE AMINO TRANSFERASE 36 U/L (14-36); BILIRUBIN,DIRECT 0.3 mg/dL (0.0-0.4); BILIRUBIN,TOTAL 0.3 mg/dL (0.2-1.3); BLOOD UREA NITROGEN 19 mg/dL (7-20); CALCIUM 9.9 mg/dL (8.4-10.2); CARBON DIOXIDE 24 mmol/L (22-30); CHLORIDE 102 mmol/L (98-107); CHOLESTEROL 182.85 mg/dL (0-200); GLUCOSE 307 mg/dL (75-110); POTASSIUM 4.7 mmol/L (3.6-5.0); SODIUM 138.7 mmol/L (137-145); TOTAL PROTEIN 6.7 g/dL (6.3-8.2); TRIGLYCERIDES 474 mg/dL (<150)
[2019-01-13 13:53] LABS: DIRECT LDL 97 mg/dL (<100)
== END ==
LOC: OD 12:05
PROVIDERS: ATTEND Internal Medicine Cardiovascular Disease
DX: I10 Essential (primary) hypertension (principal); R53.83 Other fatigue; Z79.899 Other long term (current) drug therapy; E78.2 Mixed hyperlipidemia
CPT/HCPCS: 36415; 80048; 80061; 80076; 84443; 85027

== ENCOUNTER → 2019-02-17 | Outpatient (CLI) | payer MEDICARE, OTHER ==
[2019-02-17 11:30] LABS: ANION GAP 9 (5-19); BLOOD UREA NITROGEN 31 mg/dL (7-20); CALCIUM 10.3 mg/dL (8.4-10.2); CARBON DIOXIDE 31 mmol/L (22-30); CHLORIDE 100 mmol/L (98-107); GLUCOSE 169 mg/dL (75-110); POTASSIUM 5.1 mmol/L (3.6-5.0); SODIUM 140.4 mmol/L (137-145)
== END ==
LOC: OD 10:30
PROVIDERS: ATTEND Internal Medicine Cardiovascular Disease
DX: I10 Essential (primary) hypertension (principal); E11.9 Type 2 diabetes mellitus without complications; Z79.899 Other long term (current) drug therapy
CPT/HCPCS: 36415; 80048

== ENCOUNTER → 2019-06-04 | Outpatient (CLI) | payer MEDICARE, OTHER ==
--- NOTE | 2019-06-04 10:07 | WOMENS IMAGING REPORT ---
EXAM DESCRIPTION: 3D SCREENING MAMMO BILAT COMPLETED DATE/TIME: 06/04/2019 9:18 am REASON FOR STUDY: Z12.31 SCREENING MAMMO Z12.31 ENCNTR SCREEN MAMMOGRAM FOR MALIGNANT NEOPLASM OF B RE COMPARISON: 2015, 2016 EXAM PARAMETERS: Views: Standard craniocaudal and mediolateral oblique views of each breast recorded using digital acquisition and breast tomosynthesis. Read with the assistance of CAD. .[employer] - R2 Nut S[employer] Operator Version 9.2 LIMITATIONS: None. FINDINGS: No suspicious masses, suspicious calcifications or architectural distortion. No areas of c oncern. IMPRESSION: NEGATIVE MAMMOGRAM. BIRADS 1. BREAST DENSITY: a. The breasts are almost entirely fatty. BIRAD: ASSESSMENT: 1 NEGATIVE RECOMMENDATION: ROUTINE SCREENING COMMENT: The patient has been notified of the results by letter per MQSA requirements. Additional no tification policies are in place for contacting patient with suspicious or incomplete findings. Quality ID #225: The [employer] recommends an annual screening mammogram for women aged 40 years or over. This facility utilizes a reminder system to ensure that all patients receive reminder letters, and/or direct phone calls for appointments. This includes reminders for routine scr eening mammograms, diagnostic mammograms, or other Breast Imaging Interventions when appropriate. Th is patient will be placed in the appropriate reminder system. TECHNICAL DOCUMENTATION: FINDING NUMBER: (1) ASSESSMENT: (1) JOB ID: [id number] [employer]- All Rights Reserved Reading location - IP/workstation name: [email or web address]
== END ==
LOC: WI 08:45
PROVIDERS: ATTEND Physician Assistant
DX: Z12.31 Encounter for screening mammogram for malignant neoplasm of breast (principal)
CPT/HCPCS: 77063; 77067

== ENCOUNTER → 2019-08-21 | Outpatient (CLI) | payer MEDICARE, OTHER ==
--- NOTE | 2019-08-21 11:36 | RADIOLOGY REPORT (SQ) ---
EXAM DESCRIPTION: CT RT LOWER EXTREMITY COMBO COMPLETED DATE/TIME: 08/21/2019 8:49 am REASON FOR STUDY: PAIN IN RIGHT ANKLE AND JOINTS OF RIGHT FOOT (M25.571), NONDISPLACED FX OF 5 M25.5 71 PAIN IN RIGHT ANKLE AND JOINTS OF RIGHT FOOT COMPARISON: None. EXAM PARAMETERS: TECHNIQUE:Axial imaging performed through the right ankle and foot with reformatted coronal and sagittal imaging windowed for bone and soft tissues. Imaging is performed before and af ter the intravenous administration of 50 mL Omnipaque 350 low osmolar contrast. Creatinine 1.0. Images saved to PACS. 3D IMAGING: Were 3D images as MIP, SSD, or volume rendering performed at the work station? Yes. All CT scanners at this facility use dose modulation, iterative reconstruction, and/or weight based d osing when appropriate to reduce radiation dose to as low as reasonably achievable (ALARA). [facility]: Dose Right [facility]: [employer] [facility]: Dose Right [facility]: Ter[employer] 4D [facility]: [employer] RADIATION DOSE: CT Rad equipment meets quality standard of care and radiation dose reduction techniqu es were employed. CTDIvol: 4.6 mGy. DLP: 251 mGy-cm. mGy. LIMITATIONS: Lack of history, lack of prior images. FINDINGS: SOFT TISSUES: No obvious swelling or foreign body. No abnormal fluid collection. No abno rmal enhancement. BONES: No acute fracture or dislocation. There appears to be a small nonunited fragment of bone invo lving the dorsal aspect of the navicular. This is best seen on sagittal images. There are 2 small m etallic fragments in the distal fibula. These may represent portions of screws. MINERALIZATION: Normal. OTHER: No other significant finding. IMPRESSION: There may be a very small nonunited fracture fragment involving the dorsal aspect of the navicular. The study is limited by lack of information and lack of prior images. If further histor y can be made available and prior images can be made available, an addendum report can be done. TECHNICAL DOCUMENTATION: JOB ID: [id number] [facility] [id number]: Final reports with documentation of one or more dose reduction techniques (e.g., Automate d exposure control, adjustment of the mA and/or kV according to patient size, use of iterative recons truction technique) 2010 [employer]- All Rights Reserved Reading location - IP/workstation name: [email or web address]
== END ==
LOC: RAD 08:11
PROVIDERS: ATTEND Podiatrist Foot Surgery
DX: S92.355S Nondisplaced fracture of fifth metatarsal bone, left foot, sequela (principal); X58.XXXS Exposure to other specified factors, sequela; M25.571 Pain in right ankle and joints of right foot
CPT/HCPCS: 82565

== ENCOUNTER 2020-01-12 14:06 | Emergency (ER) | payer MEDICARE, OTHER ==
[2020-01-12] MEDS ORDERED: ONDANSETRON HCL INJ/PF 4 MG/2 ML SDV IV ONE (14:16)
[2020-01-12] MEDS ORDERED: MORPHINE SULFATE 10 MG/ML INJ IV ONE (14:16)
--- NOTE | 2020-01-12 14:20 | ER Document Report ---
ED Medical Screen (RME) - General Chief Complaint: Flank Pain Stated Complaint: RIGHT FLANK PAIN Time Seen by Provider: 01/12/20 14:11 Primary Care Provider: JOEY GAONA DPM [Primary Care Provider] - Follow up as needed Mode of Arrival: Ambulatory Information source: Patient Notes: HPI; 74-year-old female past medical history significant diabetes, hypertension, hyperlipidemia, RLS, IBS presents emergency room with sudden onset of right flank pain that radiates to her right lower abdomen. Complains of nausea but no vomiting, no urinary symptoms, no medications for symptoms. PE: Alert and oriented x3, moderate distress noted, positive right CVA tenderness. Lungs clear to auscultation without rales rhonchi or wheezes. Heart: Regular rate and rhythm without murmurs rubs or gallops. I have greeted and performed a rapid initial assessment of this patient. A comprehensive ED assessment and evaluation of the patient, analysis of test results and completion of the medical decision making process will be conducted by additional ED providers. I have specifically instructed the patient or family members with the patient to immediately return to any nursing staff should anything change in the patient's condition or with their chief complaint. TRAVEL OUTSIDE OF THE [place] IN LAST 30 DAYS: No - Related Data Allergies/Adverse Reactions: bacitracin [From Neosporin ([id number]-zsx-dkdxd)] Allergy (Verified 08/21/17 22:35) demeclocycline [From Declomycin] Allergy (Verified 08/21/17 22:35) latex Allergy (Verified 08/21/17 22:35) metronidazole [From Flagyl] Allergy (Verified 08/21/17 22:35) neomycin [From Neosporin ([id number]-vcf-korwp)] Allergy (Verified 08/21/17 22:35) nizatidine [From Axid] Allergy (Verified 08/21/17 22:35) oxycodone [From Percocet] Allergy (Verified 08/21/17 22:35) polymyxin B [From Neosporin ([id number]-vgr-awzvj)] Allergy (Verified 08/21/17 22:35) prednisone Allergy (Verified 08/21/17 22:35) sulfamethoxazole [From Septra] Allergy (Verified 08/21/17 22:35) trimethoprim [From Septra] Allergy (Verified 11/30/16 11:00) Past Medical History - Social History Frequency of alcohol use: None Drug Abuse: None - Past Medical History Cardiac Medical History: Reports: Hx Coronary Artery Disease, Hx Heart Attack, Hx Hypercholesterolemia, Hx Hypertension Pulmonary Medical History: Reports: Hx COPD Endocrine Medical History: Reports: Hx Diabetes Mellitus Type 2 - On insulin Renal/ Medical History: Denies: Hx Peritoneal Dialysis GI Medical History: Reports: Hx Gastroesophageal Reflux Disease Musculoskeltal Medical History: Reports Hx Arthritis Psychiatric Medical History: Reports: Hx Depression Past Surgical History: Reports: Hx Cholecystectomy, Hx Hysterectomy, Hx Nose Surgery, Hx Orthopedic Surgery - Carpal tunnel, left shoulder, both feet, right hand exploration, Other - Bilateral eye surgery, right ear surgery - Immunizations Hx Diphtheria, Pertussis, Tetanus Vaccination: No Physical Exam - Vital signs Vitals: Temp Pulse Resp BP Pulse Ox 97.9 F 72 16 162/65 H 99 01/12/20 14:10 01/12/20 14:10 01/12/20 14:10 01/12/20 14:10 01/12/20 14:10 Course - Vital Signs Vital signs: Temp Pulse Resp BP Pulse Ox 97.9 F 72 16 162/65 H 99 01/12/20 14:11 01/12/20 14:10 01/12/20 14:10 01/12/20 14:10 01/12/20 14:10 Doctor's Discharge - Discharge Referrals: JOEY GAONA DPM [Primary Care Provider] - Follow up as needed
[2020-01-12 14:43] LABS: ABSOLUTE BASOPHILS # (AUTO) 0.2 10^3/uL (0.0-0.2); ABSOLUTE EOSINOPHILS # (AUTO) 0.2 10^3/uL (0.0-0.6); ABSOLUTE LYMPHOCYTES (AUTO) 2.3 10^3/uL (0.5-4.7); ABSOLUTE MONOCYTES (AUTO) 0.6 10^3/uL (0.1-1.4); ABSOLUTE NEUT (AUTO) 12.9 10^3/uL (1.7-8.2); EOSINOPHILS % (AUTO) 1.5 % (0-6); HEMATOCRIT 40.3 % (36.0-47.0); HEMOGLOBIN 13.8 g/dL (12.0-15.5); MEAN CORPUSCULAR HEMOGLOBIN 29.9 pg (27.0-33.4); MEAN CORPUSCULAR HGB CONC 34.3 g/dL (32.0-36.0); MEAN CORPUSCULAR VOLUME 87 fl (80-97); MONOCYTES % (AUTO) 3.9 % (3-13); PLATELET COUNT 339 10^3/uL (150-450); RED BLOOD COUNT 4.62 10^6/uL (3.72-5.28); RED CELL DISTRIBUTION WIDTH 15.4 % (11.5-14.0); SEGMENTED NEUTROPHILS % (AUTO) 79.6 % (42-78); TOTAL CELLS COUNTED % (AUTO) 100 %; WHITE BLOOD COUNT 16.3 10^3/uL (4.0-10.5)
[2020-01-12 14:44] LABS: APPEARANCE,URINE SLIGHTLY-CLOUDY; BILIRUBIN,URINE NEGATIVE (NEGATIVE); COLOR,URINE YELLOW; GLUCOSE, URINE NEGATIVE (NEGATIVE); KETONES,URINE NEGATIVE (NEGATIVE); LEUKOCYTE ESTERASE,URINE NEGATIVE (NEGATIVE); NITRITE,URINE NEGATIVE (NEGATIVE); PROTEIN,URINE NEGATIVE (NEGATIVE); URINE SPECIFIC GRAVITY 1.011; UROBILINOGEN,URINE NEGATIVE mg/dL (<2.0)
--- NOTE | 2020-01-12 14:56 | ER Document Report ---
ED General - General Chief Complaint: Flank Pain Stated Complaint: RIGHT FLANK PAIN Time Seen by Provider: 01/12/20 14:11 Primary Care Provider: JOEY GAONA DPM [ACTIVE STAFF] - Follow up as needed Mode of Arrival: Ambulatory TRAVEL OUTSIDE OF THE [place] IN LAST 30 DAYS: No - HPI Notes: Patient is a 74-year-old female who presents to the emergency department for evaluation of right flank pain. It was sudden onset when she was rocking in a swing with her dog. It is made worsened by movement as well as deep breaths. Nothing seems to make it better. She describes it as sharp. She denies any fevers or chills. She has had some nausea when the pain is severe. She denies any vomiting. She states she gets dizzy when she stands, but this has not happened since her pain started. She has never had anything like this in the past. She currently puts her pain at 8.5 out of 10. - Related Data Allergies/Adverse Reactions: bacitracin [From Neosporin ([id number])] Allergy (Verified 08/21/17 22:35) demeclocycline [From Declomycin] Allergy (Verified 08/21/17 22:35) latex Allergy (Verified 08/21/17 22:35) metronidazole [From Flagyl] Allergy (Verified 08/21/17 22:35) neomycin [From Neosporin ([id number])] Allergy (Verified 08/21/17 22:35) nizatidine [From Axid] Allergy (Verified 08/21/17 22:35) oxycodone [From Percocet] Allergy (Verified 08/21/17 22:35) polymyxin B [From Neosporin ([id number])] Allergy (Verified 08/21/17 22:35) prednisone Allergy (Verified 08/21/17 22:35) sulfamethoxazole [From Septra] Allergy (Verified 08/21/17 22:35) trimethoprim [From Septra] Allergy (Verified 11/30/16 11:00) Home Medications: Patient unsure of medications Past Medical History - General Information source: Patient - Social History Smoking Status: Former Smoker Frequency of alcohol use: None Drug Abuse: None Family History: CAD, COPD, Malignancy Patient has homicidal ideation: No - Past Medical History Cardiac Medical History: Reports: Hx Hypercholesterolemia, Hx Hypertension Pulmonary Medical History: Reports: Hx COPD Neurological Medical History: Reports: Hx Cerebrovascular Accident - Patient unsure Endocrine Medical History: Reports: Hx Diabetes Mellitus Type 2 - On insulin Renal/ Medical History: Denies: Hx Peritoneal Dialysis GI Medical History: Reports: Hx Gastroesophageal Reflux Disease Musculoskeletal Medical History: Reports Hx Arthritis Psychiatric Medical History: Reports: Hx Depression Past Surgical History: Reports: Hx Cholecystectomy, Hx Hysterectomy, Hx Nose Surgery, Hx Orthopedic Surgery - Carpal tunnel, left shoulder, both feet, right hand exploration, Other - Bilateral eye surgery, right ear surgery - Immunizations Hx Diphtheria, Pertussis, Tetanus Vaccination: No Hx Pneumococcal Vaccination: 03/07/15 Review of Systems - Review of Systems Gastrointestinal: See HPI Musculoskeletal: See HPI -: Yes All other systems reviewed and negative Physical Exam - Vital signs Vitals: Temp Pulse Resp BP Pulse Ox 97.9 F 72 16 162/65 H 99 01/12/20 14:10 01/12/20 14:10 01/12/20 14:10 01/12/20 14:10 01/12/20 14:10 - Notes Notes: Vital signs reviewed, please refer to chart. Head is normocephalic, atraumatic. Pupils equal round, reactive to light. Neck is supple without meningismus. Heart is regular rate and rhythm. Lungs are clear to auscultation bilaterally. Abdomen is soft, nontender, normoactive bowel sounds throughout. Examination of the spine yields no midline tenderness or step-off. She has paraspinal musculature tenderness noted from approximately T10 down through L3 on the right with associated spasm. She does have right-sided CVA tenderness. No left-sided CVA tenderness noted. Extremities without cyanosis, clubbing. Posterior calves are nontender. Peripheral pulses are equal. Skin is warm and dry. Patient is awake, alert, neurological exam is nonfocal. Course - Re-evaluation Re-evalutation: 01/12/20 14:55 Patient presents the emergency department for evaluation. She has right-sided flank pain, it is made worsened by movement. Certainly renal colic is on the differential. However, the patient has multiple risk factors for aneurysmal or dissection type bleed. Given this information I am inclined to perform an IV contrasted scan as well. Patient is medicated with morphine and Zofran, we will continue to monitor. 01/12/20 16:48 Patient is feeling significantly improved. CT scan with and without contrast failed to show any acute abnormalities. I will send the patient home with instructions for back and flank pain. I will also send her home with muscle relaxers. She is warned about side effects of these medications. She is told to follow-up with her primary care provider this week, return to the ED with worsening. - Vital Signs Vital signs: Temp Pulse Resp BP Pulse Ox 97.9 F 72 28 H 147/79 H 96 01/12/20 14:11 01/12/20 14:10 01/12/20 16:01 01/12/20 16:01 01/12/20 15:04 - Laboratory Result Diagrams: 01/12/20 14:27 01/12/20 14:27 Laboratory results interpreted by me: 01/12/20 01/12/20 14:27 14:27 WBC 16.3 H RDW 15.4 H Absolute Neuts (auto) 12.9 H Seg Neutrophils % 79.6 H Sodium 134.6 L Chloride 95 L Glucose 169 H Calcium 10.3 H Lipase 503.6 H - Diagnostic Test Radiology reviewed: Image reviewed, Reports reviewed Radiology results interpreted by me: 01/12/20 16:49 Abdomen/Pelvis CT 01/12/20 14:51 IMPRESSION: NO SIGNIFICANT OR ACUTE ABNORMALITY IN THE ABDOMEN OR PELVIS. Discharge - Discharge Clinical Impression: Acute right flank pain Low back pain Qualifiers: Chronicity: acute Back pain laterality: right Sciatica presence: without sciatica Qualified Code(s): M54.5 - Low back pain Condition: Stable Disposition: HOME, SELF-CARE Instructions: Pain Medication Injection ([facility]), Flank Pain ([facility]), Low Back Pain ([facility]) Additional Instructions: Your pain today appears to be musculoskeletal in nature. Moist heat to the painful area. Take medications as prescribed. Please watch for dizziness and drowsiness with the Robaxin. Do not lift anything heavier than 5 pounds. Gentle stretching. Follow-up with your primary care provider this week. If you develop worsening or new concerning symptoms of any sort, return immediately to the emergency department for reevaluation. Referrals: JOEY GAONA DPM [ACTIVE STAFF] - Follow up as needed
[2020-01-12 14:57] LABS: ALBUMIN 4.7 g/dL (3.5-5.0); ALKALINE PHOSPHATASE 92 U/L (38-126); ANION GAP 12 (5-19); ASPARTATE AMINO TRANSFERASE 32 U/L (14-36); BILIRUBIN,DIRECT 0.1 mg/dL (0.0-0.4); BILIRUBIN,TOTAL 0.5 mg/dL (0.2-1.3); BLOOD UREA NITROGEN 15 mg/dL (7-20); CALCIUM 10.3 mg/dL (8.4-10.2); CARBON DIOXIDE 28 mmol/L (22-30); CHLORIDE 95 mmol/L (98-107); GLUCOSE 169 mg/dL (75-110); POTASSIUM 4.2 mmol/L (3.6-5.0); TOTAL PROTEIN 7.7 g/dL (6.3-8.2)
--- NOTE | 2020-01-12 15:56 | RADIOLOGY REPORT (SQ) ---
EXAM DESCRIPTION: CT ABD/PELVIS COMBO IMAGES COMPLETED DATE/TIME: 01/12/2020 3:29 pm REASON FOR STUDY: right flank pain COMPARISON: None. TECHNIQUE: CT scan of the abdomen and pelvis performed with and without intravenous contrast, and wi thout oral contrast. Contrasted imaging performed helical scanning technique and dynamic intravenous contrast injection. Images reviewed with lung, soft tissue, and bone windows. Reconstructed coronal a nd sagittal MPR images reviewed. Delayed images were not acquired. All images stored on PACS. All CT scanners at this facility use dose modulation, iterative reconstruction, and/or weight based d osing when appropriate to reduce radiation dose to as low as reasonably achievable (ALARA). [facility]: Dose Right [facility]: CareDose [facility]: Dose Right [facility]: Teradose 4D [facility]: Positron CONTRAST TYPE AND DOSE: contrast/concentration: Isovue 350.00 mg/ml; Total Contrast Delivered: 80.0 ml; Total Saline Delivered: 68.0 ml RENAL FUNCTION: BUN 12 creatinine 0.83 RADIATION DOSE: CT Rad equipment meets quality standard of care and radiation dose reduction techniq ues were employed. CTDIvol: 11.7 - 15.8 mGy. DLP: 2160 mGy-cm. . LIMITATIONS: None. FINDINGS: NON-CONTRASTED IMAGING: No significant renal or bladder calcifications. No other significa nt organ calcifications. POST-CONTRASTED IMAGING: LOWER CHEST: No significant findings. No nodules or infiltrates. LIVER: Normal size. No masses. No dilated ducts. SPLEEN: Normal size. No focal lesions. PANCREAS: No masses. No significant calcifications. No adjacent inflammation or peripancreatic fluid collections. Pancreatic duct not dilated. GALLBLADDER: Surgically absent. ADRENAL GLANDS: No significant masses or asymmetry. RIGHT KIDNEY AND URETER: No solid masses. There are couple small vascular calcifications. No hydr onephrosis or hydroureter. LEFT KIDNEY AND URETER: No solid masses. There are couple small vascular calcifications. No hydro nephrosis or hydroureter. AORTA AND VESSELS: No aneurysm. No dissection. Renal arteries, SMA, celiac without stenosis. RETROPERITONEUM: No retroperitoneal adenopathy, hemorrhage or masses. BOWEL AND PERITONEAL CAVITY: No masses or inflammatory changes. No free fluid or peritoneal masses. APPENDIX: Not identified. PELVIS: No mass. No free fluid. Normal bladder. ABDOMINAL WALL: No masses. No hernias. BONES: No significant or acute findings. OTHER: No other significant finding. IMPRESSION: NO SIGNIFICANT OR ACUTE ABNORMALITY IN THE ABDOMEN OR PELVIS. TECHNICAL DOCUMENTATION: JOB ID: [id number] Quality ID # [id number]: Final reports with documentation of one or more dose reduction techniques (e.g., Au tomated exposure control, adjustment of the mA and/or kV according to patient size, use of iterative reconstruction technique) 2010 [employer]- All Rights Reserved Reading location - IP/workstation name: [email or web address]
[2020-01-12 17:14] VITALS: BP 142/70
== END 2020-01-12 17:05 | disposition home or self-care (01) ==
LOC: ER 14:06
DX: R10.9 Unspecified abdominal pain (principal); M62.830 Muscle spasm of back; M54.5 Low back pain; R11.0 Nausea; R42 Dizziness and giddiness; I10 Essential (primary) hypertension; J44.9 Chronic obstructive pulmonary disease, unspecified; E11.9 Type 2 diabetes mellitus without complications; Z87.891 Personal history of nicotine dependence; Z87.19 Personal history of other diseases of the digestive system; Z90.49 Acquired absence of other specified parts of digestive tract; Z88.3 Allergy status to other anti-infective agents; Z91.040 Latex allergy status; Z88.1 Allergy status to other antibiotic agents; Z88.6 Allergy status to analgesic agent; Z88.5 Allergy status to narcotic agent; Z88.8 Allergy status to other drugs, medicaments and biological substances
CPT/HCPCS: 99284; 96374; 96375; 36415; 83690; 85025; 80053; 81001; 74178; J2270; J2405

== ENCOUNTER → 2020-04-11 | Outpatient (CLI) | payer MEDICARE, OTHER ==
[2020-04-11 11:51] LABS: ALBUMIN 4.3 g/dL (3.5-5.0); ALKALINE PHOSPHATASE 63 U/L (38-126); ANION GAP 10 (5-19); ASPARTATE AMINO TRANSFERASE 22 U/L (14-36); BILIRUBIN,DIRECT 0.3 mg/dL (0.0-0.4); BILIRUBIN,TOTAL 0.3 mg/dL (0.2-1.3); BLOOD UREA NITROGEN 17 mg/dL (7-20); CALCIUM 10.1 mg/dL (8.4-10.2); CARBON DIOXIDE 29 mmol/L (22-30); CHLORIDE 102 mmol/L (98-107); CHOLESTEROL 133.11 mg/dL (0-200); GLUCOSE 98 mg/dL (75-110); POTASSIUM 4.1 mmol/L (3.6-5.0); TOTAL PROTEIN 6.9 g/dL (6.3-8.2); TRIGLYCERIDES 147 mg/dL (<150)
[2020-04-11 12:02] LABS: DIRECT LDL 67 mg/dL (<100)
== END ==
LOC: OD 10:42
PROVIDERS: ATTEND Physician Assistant
DX: E78.2 Mixed hyperlipidemia (principal); I10 Essential (primary) hypertension; Z79.899 Other long term (current) drug therapy
CPT/HCPCS: 36415; 80048; 80061; 80076

== ENCOUNTER → 2020-06-07 | Outpatient (CLI) | payer MEDICARE, OTHER ==
--- NOTE | 2020-06-07 15:32 | WOMENS IMAGING REPORT ---
EXAM DESCRIPTION: 3D SCREENING MAMMO BILAT IMAGES COMPLETED DATE/TIME: 06/07/2020 9:32 am REASON FOR STUDY: Z12.31 ENCNTR SCREEN MAMMOGRAM FOR MALIGNANT NEOPLASM OF BREAST Z12.31 ENCNTR SCR EEN MAMMOGRAM FOR MALIGNANT NEOPLASM OF KYLE COMPARISON: Multiple since 2016 EXAM PARAMETERS: Views: Standard craniocaudal and mediolateral oblique views of each breast recorded using digital acquisition and breast tomosynthesis. Read with the assistance of CAD. .[facility] - Practicing Urologist Version 9.2 LIMITATIONS: None. FINDINGS: No suspicious masses, suspicious calcifications or architectural distortion. No areas of c oncern. IMPRESSION: NEGATIVE MAMMOGRAM. BIRADS 1. BREAST DENSITY: a. The breasts are almost entirely fatty. BIRAD: ASSESSMENT: 1 NEGATIVE RECOMMENDATION: ROUTINE SCREENING Please continue yearly bilateral screening mammography/tomosynthesis in May 2021 COMMENT: The patient has been notified of the results by letter per [place] requirements. Additional no tification policies are in place for contacting patient with suspicious or incomplete findings. Quality ID #[id number]: The [employer] recommends an annual screening mammogram for women aged 40 years or over. This facility utilizes a reminder system to ensure that all patients receive reminder letters, and/or direct phone calls for appointments. This includes reminders for routine scr eening mammograms, diagnostic mammograms, or other Breast Imaging Interventions when appropriate. Th is patient will be placed in the appropriate reminder system. TECHNICAL DOCUMENTATION: FINDING NUMBER: (1) ASSESSMENT: (1) JOB ID: [id number] 2010 [employer]- All Rights Reserved Reading location - IP/workstation name: [email or web address]
== END ==
LOC: WI 09:06
PROVIDERS: ATTEND Physician Assistant
DX: Z12.31 Encounter for screening mammogram for malignant neoplasm of breast (principal)
CPT/HCPCS: 77063; 77067

== ENCOUNTER → 2020-07-11 | Outpatient (CLI) | payer MEDICARE, OTHER ==
[2020-07-11 11:49] LABS: ALBUMIN 4.2 g/dL (3.5-5.0); ALKALINE PHOSPHATASE 81 U/L (38-126); ANION GAP 8 (5-19); ASPARTATE AMINO TRANSFERASE 29 U/L (14-36); BILIRUBIN,DIRECT 0.1 mg/dL (0.0-0.4); BILIRUBIN,TOTAL 0.4 mg/dL (0.2-1.3); BLOOD UREA NITROGEN 16 mg/dL (7-20); CARBON DIOXIDE 27 mmol/L (22-30); CHLORIDE 99 mmol/L (98-107); CHOLESTEROL 173.47 mg/dL (0-200); GLUCOSE 254 mg/dL (75-110); POTASSIUM 4.7 mmol/L (3.6-5.0); TRIGLYCERIDES 406 mg/dL (<150)
[2020-07-11 12:00] LABS: DIRECT LDL 91 mg/dL (<100)
== END ==
LOC: OD 10:37
PROVIDERS: ATTEND Physician Assistant
DX: I10 Essential (primary) hypertension (principal); E78.2 Mixed hyperlipidemia; Z79.899 Other long term (current) drug therapy
CPT/HCPCS: 36415; 80048; 80061; 80076